=== PATIENT | male | born 1965 | race Caucasian/White ===

== ENCOUNTER → 2017-11-29 | Outpatient (CLI) | payer BC ==
[~2017-11-29] MED LIST: OMNIPAQUE 350 MG/ML, 150 ML BOTTLE ONE
== END | disposition home or self-care (01) ==
LOC: RAD 08:38
PROVIDERS: ATTEND Internal Medicine Hematology & Oncology
DX: D47.3 Essential (hemorrhagic) thrombocythemia (principal); Z90.81 Acquired absence of spleen; Q61.3 Polycystic kidney, unspecified; K43.9 Ventral hernia without obstruction or gangrene
CPT/HCPCS: 71260; 74177; Q9967

== ENCOUNTER 2018-08-17 13:32 | Inpatient (IN) | payer BC, OTHER ==
[~2018-08-17] VITALS: Ht 190.5 cm; Wt 138.8 kg
--- NOTE | 2018-08-17 14:00 | NUR ---
Pt ambulatory to room from lobby at this time with steady gait.
[2018-08-17] MEDS ORDERED: LISI2.5T PO (14:20)
[2018-08-17] MEDS ORDERED: AMLO2.5T5 PO (14:20)
--- NOTE | 2018-08-17 14:20 | NUR ---
PT STANDING STEADILY IN ROOM, CHANGING TO GOWN. PWD. PT REPORTS SUDDEN ONSET N/V/D X TWO HOURS AGO. +"AT LEAST FIVE BLACK DIARRHEA THAT JUST KEEP GETTING BLOODIER" STOOLS AND ONE EPISODE OF COFFEE GROUND EMESIS. HX OF HTN AND ABD ANEURYSM. PT DENIES BLOOD THINNERS/WEAKNESS/DIZZINESS/ABD PAIN. BP/SPO2/ECG MONITORING IN PLACE. SPO2 88% ON RA. PT PLACED ON 2L BY NC, SPO2 TO 93%. RR WNL; NO RESPIRATORY DISTRESS NOTED. PT DENIES PRODUCTIVE COUGH/CP/SOB. SINUS TACH ON MONITOR, HR 100'S. IV ESTABLISHED. LABS DRAWN. AWAITING ERP EVAL.
[2018-08-17] MEDS ORDERED: PANTOPRAZOLE 80 MG in SODIUM CHLORIDE 0.9% 50 ML IVPB ONE (14:36)
[2018-08-17] MEDS ORDERED: PANTOPRAZOLE 80 MG in SODIUM CHLORIDE 0.9% 100 ML IV SCH (14:36)
[2018-08-17] MEDS ORDERED: FAMOTIDINE 20 MG/2 ML ONE (14:50)
[2018-08-17] MEDS ORDERED: PANTOPRAZOLE 40 MG IV ONE (14:50)
[2018-08-17] MEDS ORDERED: ONDANSETRON 2MG/ML, 2ML ONE (14:50)
[2018-08-17 14:59] LABS: BASOPHILS # (AUTO) 0.08 x10^3/uL (0-0.1); BASOPHILS % (AUTO) 1 % (0-1); EOSINOPHILS # (AUTO) 0.17 x10^3/uL (0-0.4); EOSINOPHILS % (AUTO) 1 % (1-7); LYMPHOCYTES # (AUTO) 2.51 x10^3/uL (1-3.4); LYMPHOCYTES % (AUTO) 17 % (22-44); MD NO; MEAN CORPUSCULAR HEMOGLOBIN 31.7 pg (27.5-34.5); MEAN CORPUSCULAR HGB CONC 32.1 g/dL (33.2-36.2); MEAN CORPUSCULAR VOLUME 98.8 fL (81-97); MEAN PLATELET VOLUME 8.8 fL (7.4-10.4); MONOCYTES # (AUTO) 0.94 x10^3/uL (0.2-0.8); MONOCYTES % (AUTO) 6 % (2-9); NEUTROPHILS # (AUTO) 11.01 x10^3/uL (1.8-6.8); NEUTROPHILS % (AUTO) 75 % (42-75); PLATELET COUNT 433 x10^3/uL (130-400); RED CELL DISTRIBUTION WIDTH 15.9 % (9.4-14.8)
[2018-08-17] MEDS ORDERED: ONDANSETRON 2MG/ML, 2ML IVPush ONE (15:00)
[2018-08-17] MEDS ORDERED: SODIUM CHLORIDE FLUSH 10ML SYR IVF ONE (15:00)
[2018-08-17] MEDS ORDERED: FAMOTIDINE 20 MG/2 ML IVPush ONE (15:00)
[2018-08-17 15:12] LABS: ALANINE AMINOTRANSFERASE 16 U/L (12-78); ALBUMIN 3.5 g/dL (3.4-5.0); ANION GAP 7 mmol/L (5-15); CALCIUM 8.7 mg/dL (8.5-10.1); CHLORIDE 109 mmol/L (98-107)
[2018-08-17] MEDS ORDERED: FLUO10CA7 PO (15:13)
[2018-08-17] MEDS ORDERED: ALLO100T30 PO (15:13)
--- NOTE | 2018-08-17 15:13 | NUR ---
SECOND IV ESTABLISHED. PT MEDICATED PER EMAR.
[2018-08-17 15:14] LABS: ALKALINE PHOSPHATASE 41 U/L (45-117); BILIRUBIN,TOTAL 0.4 mg/dL (0.2-1.0); CREATININE 1.17 mg/dL (0.7-1.3); INTERNATIONAL NORMALIZED RATIO 0.98 (0.93-1.1); PROTHROMBIN TIME 10.3 Seconds (9.6-11.5); TOTAL PROTEIN 6.7 g/dL (6.4-8.2)
[2018-08-17] MEDS ORDERED: LATA7.5D EACHEYE (15:14)
[2018-08-17] MEDS ORDERED: SODIUM CHLORIDE 0.9%, 500ML IVBOLUS ONE (16:30)
--- NOTE | 2018-08-17 16:30 | NUR ---
PT SITTING AT EDGE OF BED. DENIES DIZZINESS/WEAKNESS/NAUSEA. NO BM OR VOMITING NOTED WHILE IN ED. BP/SPO2/ECG MONITORING REMAIN IN PLACE. IVF/MEDICATIONS RUNNING PER EMAR.
--- NOTE | 2018-08-17 17:24 | NUR ---
PT AMBULATED STEADILY TO ROOM. NAD NOTED. PT DENIES DIZZINESS/WEAKNESS. +BLOODY STOOL REPORTED BY PT. LAB IN TO DRAW.
[2018-08-17] MEDS ORDERED: ONDANSETRON 2MG/ML, 2ML IVPush PRN (17:30)
[2018-08-17] MEDS ORDERED: PROMETHAZINE 25 MG/ML, 1ML IM PRN (17:30)
[2018-08-17] MEDS ORDERED: ONDANSETRON ODT 4 MG PO PRN (17:30)
[2018-08-17] MEDS ORDERED: OXYcodone IR 5MG TABLET PO PRN (17:30)
[2018-08-17] MEDS ORDERED: morphine SULFATE 10 MG/ML, 1ML IVPush PRN (17:30)
[2018-08-17] MEDS ORDERED: hydrALAzine 20 MG/ML, 1ML IVPush PRN (17:30)
[2018-08-17 17:33] LABS: BASOPHILS # (AUTO) 0.05 x10^3/uL (0-0.1); BASOPHILS % (AUTO) 0 % (0-1); EOSINOPHILS # (AUTO) 0.28 x10^3/uL (0-0.4); EOSINOPHILS % (AUTO) 2 % (1-7); LYMPHOCYTES # (AUTO) 3.33 x10^3/uL (1-3.4); LYMPHOCYTES % (AUTO) 27 % (22-44); MD NO; MEAN CORPUSCULAR HGB CONC 31.9 g/dL (33.2-36.2); MEAN CORPUSCULAR VOLUME 100.4 fL (81-97); MEAN PLATELET VOLUME 8.4 fL (7.4-10.4); MONOCYTES # (AUTO) 0.82 x10^3/uL (0.2-0.8); MONOCYTES % (AUTO) 7 % (2-9); NEUTROPHILS # (AUTO) 7.84 x10^3/uL (1.8-6.8); NEUTROPHILS % (AUTO) 64 % (42-75); PLATELET COUNT 432 x10^3/uL (130-400); RED BLOOD COUNT 3.77 x10^6/uL (4.38-5.82); RED CELL DISTRIBUTION WIDTH 16.2 % (9.4-14.8)
--- NOTE | 2018-08-17 17:41 | NUR ---
REPORT TO LATASHA NICHOLSON ON FLOOR
[2018-08-17 17:58] LABS: FREE T4 (FREE THYROXINE) 0.83 ng/dL (0.76-1.46); THYROID STIMULATING HORMONE 1.75 mIU/L (0.358-3.740)
[2018-08-17 18:56] VITALS: BP 108/71
[2018-08-17] MEDS ORDERED: DOCUSATE 100 MG CAPSULE PO PRN (21:00)
[2018-08-17] MEDS: SODIUM CHLORIDE 0.9% 1,000 ML IV SCH (22:20)
[2018-08-17 22:26] LABS: MICROSCOPIC NOT IND
[2018-08-17 22:29] LABS: CULTURE INDICATED? NO
[2018-08-17] MEDS ORDERED: OMNIPAQUE 350 MG/ML, 100ML BOTTLE ONE (23:35)
[2018-08-18 01:06] VITALS: BP 109/70
[2018-08-18 03:29] LABS: BASOPHILS # (AUTO) 0.07 x10^3/uL (0-0.1); BASOPHILS % (AUTO) 1 % (0-1); EOSINOPHILS % (AUTO) 3 % (1-7); LYMPHOCYTES # (AUTO) 2.57 x10^3/uL (1-3.4); LYMPHOCYTES % (AUTO) 24 % (22-44); MD NO; MEAN CORPUSCULAR HGB CONC 32.2 g/dL (33.2-36.2); MEAN CORPUSCULAR VOLUME 99.4 fL (81-97); MEAN PLATELET VOLUME 8.3 fL (7.4-10.4); MONOCYTES # (AUTO) 0.76 x10^3/uL (0.2-0.8); MONOCYTES % (AUTO) 7 % (2-9); NEUTROPHILS # (AUTO) 7.16 x10^3/uL (1.8-6.8); NEUTROPHILS % (AUTO) 66 % (42-75); PLATELET COUNT 411 x10^3/uL (130-400); RED CELL DISTRIBUTION WIDTH 15.6 % (9.4-14.8)
[2018-08-18 03:39] LABS: ANION GAP 2 mmol/L (5-15); CHLORIDE 114 mmol/L (98-107)
[2018-08-18 03:41] LABS: ALANINE AMINOTRANSFERASE 13 U/L (12-78); ALKALINE PHOSPHATASE 28 U/L (45-117); BILIRUBIN,TOTAL 0.5 mg/dL (0.2-1.0); CHOL/HDL RATIO 2.5; CHOLESTEROL, TOTAL 76 mg/dL (140-239); CREATININE 0.98 mg/dL (0.7-1.3); HDL CHOL % 39 % (26-37); HDL CHOLESTEROL (DIRECT) 30 mg/dL (40-60); LDL CHOLESTEROL,CALCULATED 19 mg/dL (54-169); LDL/HDL RATIO 0.6 (0.5-3.0); TOTAL PROTEIN 5.5 g/dL (6.4-8.2); TRIGLYCERIDES 137 mg/dL (50-200); VLDL CHOLESTEROL 27 mg/dL (0-25)
[2018-08-18 07:18] VITALS: BP 107/72
[2018-08-18] MEDS: FLUOXETINE 10 MG CAP PO SCH (10:04)
[2018-08-18] MEDS: ALLOPURINOL 300 MG TABLET PO SCH (10:04)
[2018-08-18] MEDS: SODIUM CHLORIDE 0.9% 1,000 ML IV SCH (10:15)
[2018-08-18] MEDS ORDERED: MIDAZOLAM 1 MG/ML, 5ML ONE (10:54)
[2018-08-18] MEDS ORDERED: FENTANYL PF 100 MCG/2ML ONE (10:54)
[2018-08-18 15:12] VITALS: BP 110/70
[2018-08-18] MEDS: PANTOPRAZOLE 80 MG in SODIUM CHLORIDE 0.9% 100 ML IV SCH (17:04)
[2018-08-18 18:51] VITALS: BP 119/78
[2018-08-18] MEDS: OMEPRAZOLE 20 MG CAPSULE.DR PO SCH (20:35)
[2018-08-19 03:20] VITALS: BP 102/67
[2018-08-19] MEDS: PANTOPRAZOLE 80 MG in SODIUM CHLORIDE 0.9% 100 ML IV SCH ×2 (03:47→13:45)
[2018-08-19 07:19] VITALS: BP 113/77
[2018-08-19] MEDS: FLUOXETINE 10 MG CAP PO SCH (09:02)
[2018-08-19] MEDS: ALLOPURINOL 300 MG TABLET PO SCH (09:02)
[2018-08-19] MEDS: OMEPRAZOLE 20 MG CAPSULE.DR PO SCH (09:02)
[2018-08-19] MEDS ORDERED: OMEP-110 PO (12:29)
[2018-08-19 12:58] VITALS: BP 115/78
== END 2018-08-19 13:48 | disposition home or self-care (01) | DRG 378 ==
LOC: ED 15:03 → EDIP 16:46 → 3NE 17:31 → DCLOUNGE 08-19 13:38
PROVIDERS: ADMIT Hospitalist; ATTEND Hospitalist
PROC: 0DB78ZX Excision of Stomach, Pylorus, Via Natural or Artificial Opening Endoscopic, Diagnostic (ICD-10-PCS; principal; 2018-08-18 13:30)
DX: K25.4 Chronic or unspecified gastric ulcer with hemorrhage (principal); E44.0 Moderate protein-calorie malnutrition; K92.1 Melena; D53.9 Nutritional anemia, unspecified; G43.909 Migraine, unspecified, not intractable, without status migrainosus; F32.9 Major depressive disorder, single episode, unspecified; Z68.38 Body mass index [BMI] 38.0-38.9, adult; H35.30 Unspecified macular degeneration; I10 Essential (primary) hypertension; M10.9 Gout, unspecified; K44.9 Diaphragmatic hernia without obstruction or gangrene; K29.70 Gastritis, unspecified, without bleeding; Z80.1 Family history of malignant neoplasm of trachea, bronchus and lung; Z90.81 Acquired absence of spleen
CPT/HCPCS: 36415; 99285; J3490; 74177; 80053; 80061; 81003; 83036; 83605; 83690; 83735; 84100; 84439; 84443; 85014; 85018; 85025; 85610; 85730; 86850; 86900; 87040; 88305; 93005; 96374; 96375; 99152; 99153; G0378; J2250; J2405; J3010; Q9967; C9113; J7030; J7040